=== PATIENT | female | born 1985 | race African-American/Black ===

== ENCOUNTER 2017-03-05 07:54 | Inpatient (IN) | payer OTHER ==
[2017-03-04 15:18] LABS: Hematocrit 38 % (35-47); Hemoglobin 12.3 g/dl (12.0-16.0); Mean Corpuscular HGB Conc 33 g/dl (31-36); Mean Corpuscular Hemoglobin 28 pg (27-31); Mean Corpuscular Volume 86 fL (80-97); Mean Platelet Volume 8 um3 (7.4-10.4); Red Blood Count 4.37 10^6/ul (4.0-5.4); Red Cell Distribution Width 14 % (10.5-15)
[~2017-03-05 07:54] MED LIST: Buffered Lidocaine 0.9% SYRIN* 5 ML/SYR SYRINGE INTRADERM ONE; Famotidine IV* 10 MG/ML 2 ML (20 mg) IV ONE; Sodium Citrate/Citric Acid* 15 ML UDC PO ONE
[2017-03-05] MEDS ORDERED: Lidocaine 1% MPF* 2 ML VIAL ONE (08:38)
[2017-03-05] MEDS ORDERED: Dexamethasone IV* 4 MG/ML 1 ML (4 MG) ONE (09:12)
[2017-03-05] MEDS ORDERED: Ondansetron INJ* 2 MG/ML VIAL ONE (09:12)
[2017-03-05] MEDS ORDERED: Morphine PF AMP (0.5MG/ML)* 5 MG/10 ML AMP ONE (09:12)
[2017-03-05] MEDS ORDERED: OXYTOCIN* 10 UNITS/ML 1 ML VIAL ONE ×2 (09:12→11:08)
[2017-03-05] MEDS ORDERED: ceFOXitin 2 GM IVPREMIX* 2 GM/50 ML BAG IVPB ONE (09:30)
[2017-03-05] MEDS ORDERED: Methylergonovine INJ* 0.2 MG/ML 1ML AMP ONE (11:08)
[2017-03-05] MEDS ORDERED: fentaNYL* 50 MCG/ML 2 ML VIAL (100 MCG VIAL) ONE (11:20)
[2017-03-05] MEDS ORDERED: Lidocaine 2% PF* 10 ML AMP ONE (11:24)
[2017-03-05] MEDS ORDERED: oxyCODONE/Acetamin 5/325 MG* TAB PO PRN (11:34)
[2017-03-05] MEDS ORDERED: fentaNYL* 50 MCG/ML 2 ML VIAL (100 MCG VIAL) IV PRN (11:34)
[2017-03-05] MEDS ORDERED: Naloxone* 0.4 MG/ML 1 ML VIAL IV PRN (11:34)
[2017-03-05] MEDS ORDERED: Nalbuphine* 20 MG/ML 1 ML VIAL IV PRN ×2 (11:34)
[2017-03-05] MEDS ORDERED: Ondansetron INJ* 2 MG/ML VIAL IV PRN (11:34)
[2017-03-05] MEDS ORDERED: Dibucaine 1% 28.35 GM TUBE PR PRN (12:08)
[2017-03-05] MEDS ORDERED: Acetaminophen TAB* 325 MG PO PRN (12:08)
[2017-03-05] MEDS ORDERED: Witch Hazel PAD* JAR TOPICAL PRN (12:08)
[2017-03-05] MEDS ORDERED: Glycerin ADULT SUPP PR PRN (12:08)
[2017-03-05] MEDS ORDERED: Oxytocin in LR* 20 UNITS/1,000 ML BAG IVPB SCH (13:00)
[2017-03-05] MEDS: Ketorolac INJ* 30 MG/ML 1 ML VIAL IV PRN ×2 (16:32→22:38)
[2017-03-05] MEDS: Simethicone CHEW TAB* 80 MG PO SCH (22:37)
[2017-03-05] MEDS: Docusate CAP* 100 MG PO SCH (22:37)
[2017-03-05] MEDS: Ibuprofen TAB* 600 MG PO SCH (23:02)
[2017-03-05] MEDS: oxyCODONE/Acetamin 5/325 MG* TAB PO PRN (23:03)
[2017-03-06] MEDS: oxyCODONE/Acetamin 5/325 MG* TAB PO PRN ×5 (03:03→23:55)
[2017-03-06] MEDS ORDERED: oxyCODONE/Acetamin 5/325 MG* TAB PO PRN (03:34)
[2017-03-06] MEDS: Ibuprofen TAB* 600 MG PO SCH ×5 (05:45→21:26)
[2017-03-06 07:23] LABS: Hematocrit 35 % (35-47); Hemoglobin 11.4 g/dl (12.0-16.0); Mean Corpuscular HGB Conc 33 g/dl (31-36); Mean Corpuscular Hemoglobin 28 pg (27-31); Mean Corpuscular Volume 86 fL (80-97); Mean Platelet Volume 8 um3 (7.4-10.4); Red Blood Count 4.06 10^6/ul (4.0-5.4); Red Cell Distribution Width 14 % (10.5-15); White Blood Count 15.3 10^3/ul (3.5-10.8)
[2017-03-06] MEDS: Simethicone CHEW TAB* 80 MG PO SCH ×6 (07:34→21:25)
[2017-03-06] MEDS: Docusate CAP* 100 MG PO SCH ×4 (07:34→21:25)
[2017-03-06] MEDS ORDERED: Ferrous Gluconate TAB* 324 MG TAB PO SCH (09:00)
--- NOTE | 2017-03-06 14:48 | OP ---
DATE OF OPERATION: 03/05/17 - ROOM #[id number] DATE OF : 85 SURGEON: Margarita Gates MD. IN SHOP SERVICE TECHNICIAN: PAULINE العراقي. SECOND IN SHOP SERVICE TECHNICIAN: Luis Torrez CNM. ANESTHESIOLOGIST: Dr. Ibarra. ANESTHESIA: Spinal anesthesia. MOTOR OVERHAULER: Dr. Camarena. PRE-OP DIAGNOSES: Intrauterine , breech presentation, right sacrum anterior, 39 and 3/7th weeks. POST-OP DIAGNOSES: Intrauterine , breech presentation, right sacrum anterior, 39 and 3/7th weeks, delivered. OPERATIVE PROCEDURE: Primary low transverse section. ESTIMATED BLOOD LOSS: 800 cc. FLUIDS: 2600 cc of crystalloid. URINE OUTPUT: 200 cc of clear yellow urine. FINDINGS: Revealed incomplete breech, right sacrum anterior, nuchal cord x2, right meconium, Apgars were 8 at 1 minute, 3 at 3 minutes, and 8 at 5 minutes. Male infant, weight was 8 pounds and 11 ounces. Normally palpated tubes and ovaries, 4 cm anterior fundal fibroid, 4 cm left broad ligament posterior fibroid, large vascular bed posterior uterine wall with a large vein on the lower uterine segment and the posterior uterine wall requiring x2 figure-of- eight sutures for hemostasis. Urine cavity without retained membranes or placental tissue. Placenta was 3-vessel cord, manually extracted and intact. COMPLICATIONS: None apparent. DISPOSITION: Stable to recovery room. DESCRIPTION OF PROCEDURE: The patient was placed in dorsal lithotomy position. The abdomen was prepped and draped in a sterile standard fashion. The patient was identified with universal protocol for correct procedure, patient, and position. After testing anesthesia to appropriate level, an incision was made two fingerbreadths above the pubic symphysis with a scalpel, this was carried down through to the fascia. The fascia was scored in the midline and the fascial incision was extended laterally and superiorly. Fascia was from the rectus muscle with blunt and sharp dissection. The peritoneum was then entered bluntly and the peritoneal incision was extended superiorly and inferiorly while directly visualizing bowel and bladder using blunt and sharp dissection. The bladder blade was inserted and lower uterine segment incision was identified. A bladder flap was created through blunt and sharp dissection. An Allis was used to tent up on the lower uterine segment and an incision was made with scalpel. This was carried down through to the membranes. The incision was extended laterally and superiorly using bandage scissors, amniotomy occurred with light meconium staining. The infant was found to be in complete breech. The right and left foot were delivered, then the right shoulder and left shoulder delivered. Head delivered. Nuchal cord x2 was noted. The cord was reduced. The cord was milked and the cord was then doubly clamped, cut, and the infant was handed off to waiting derrick worker well service. Appropriate cord blood was obtained. The placenta was manually extracted and noted to be intact with three-vessel cord and a normal appearance. The uterus, given the size of the fibroids, it was decided to leave the uterus in situ for reapproximation of the hysterotomy site, the base of the lower uterine segment and the posterior uterine wall. The endometrium was noted to have a large vein with bleeding. The vein was ligated using 0 Vicryl in a [id number] fashion x2 for complete hemostasis of the large venous vinson. Once hemostasis was assured, the uterine incision itself was then reapproximated using 0 Vicryl x2, first layer running locked, second layer running imbricated. Both tubes and ovaries were palpated. The fibroids were palpated. Please see above for findings. She had three large fibroids and normally palpated tubes and ovaries. After lavage was performed and hemostasis was assured at the hysterotomy site, the peritoneum was then reapproximated using 3-0 Vicryl in a running fashion. The subfascial area was visualized. Hemostasis assured with Bovie coagulation and the fascia itself was reapproximated using 0 Vicryl x2. Subcu was lavaged. Hemostasis was assured with Bovie coagulation. Skin was then reapproximated using 4-0 Monocryl in a subcuticular fashion. Mastisol and Steri's were applied. All sponge, needle, instrument and blade counts were correct throughout the case. The patient tolerated the procedure well. Please note that post delivery, the baby was vigorous at delivery and then at about 3 minutes, experienced a sudden drop in heart rate with respiratory issues and did require resuscitation with chest compression and supplemental O2. The did not require epinephrine and was then transferred to the NICU and placed on CPAP. I was unsure of the etiology of the sudden change in status post-operatively, it was thought it may be related to a mucus plug, but unsure. [id number]/[facility] #: [id number] NADIYA
--- NOTE | 2017-03-06 14:58 | PTEDU ---
Patient Name: SHARAD GUILLEN SHARAD GUILLEN selected video: BBOB: Nurturing Your Gorgeous \T\Growing Baby by to view o n 03/06/2017 at 2:56:40 PM [id number]
[2017-03-06] MEDS ORDERED: diPHENhydraMINE PO* 25 MG PO ONE (22:17)
[2017-03-06] MEDS ORDERED: diPHENhydraMINE PO* 25 MG ONE (22:22)
[2017-03-06] MEDS: Ibuprofen TAB* 600 MG PO PRN (23:56)
[2017-03-07] MEDS: Ibuprofen TAB* 600 MG PO PRN ×3 (07:42→21:11)
[2017-03-07] MEDS: oxyCODONE/Acetamin 5/325 MG* TAB PO PRN ×2 (07:42→22:56)
[2017-03-07] MEDS: Simethicone CHEW TAB* 80 MG PO SCH ×4 (09:50→21:12)
[2017-03-07] MEDS: Docusate CAP* 100 MG PO SCH ×3 (09:50→21:12)
[2017-03-08] MEDS: Ibuprofen TAB* 600 MG PO PRN ×2 (03:00→10:35)
[2017-03-08 08:05] VITALS: BP 136/80
[2017-03-08] MEDS: oxyCODONE/Acetamin 5/325 MG* TAB PO PRN (10:34)
[2017-03-08] MEDS: Simethicone CHEW TAB* 80 MG PO SCH (10:35)
[2017-03-08] MEDS: Docusate CAP* 100 MG PO SCH (10:35)
== END 2017-03-08 13:25 | disposition home or self-care (01) | DRG 540 ==
LOC: MCHOB 07:54
PROVIDERS: ADMIT Obstetrics & Gynecology; ATTEND Obstetrics & Gynecology
PROC: 10D00Z1 Extraction of Products of Conception, Low, Open Approach (ICD-10-PCS; principal; 2017-03-05 09:15)
DX: O32.1XX0 Maternal care for breech presentation, not applicable or unspecified (principal); D25.9 Leiomyoma of uterus, unspecified; O77.0 Labor and delivery complicated by meconium in amniotic fluid; O69.81X0 Labor and delivery complicated by cord around neck, without compression, not applicable or unspecified; O34.13 Maternal care for benign tumor of corpus uteri, third trimester; Z3A.39 39 weeks gestation of pregnancy; Z37.0 Single live birth
CPT/HCPCS: 36415; 85025; 86850; 86900; 86901; A9270-GY; J0694; J1100; J1885; J2001; J2210; J2300; J2405; J2590; J3010

== ENCOUNTER 2018-08-21 09:58 | Inpatient (IN) | payer OTHER ==
[2018-08-21] MEDS ORDERED: OBEPIDURAL* 250 ML EPIDURAL ONE (13:22)
[2018-08-21 13:32] LABS: ABS Basophils 0 10^3/ul (0-0.2); ABS Eosinophils 0 10^3/ul (0-0.6); ABS Lymphocytes 1.4 10^3/ul (1.0-4.8); ABS Monocytes 0.7 10^3/ul (0-0.8); ABS Neutrophils 8.8 10^3/ul (1.5-7.7); ABS Nucleated RBC 0 10^3/ul; Eosinophil % 0.1 %; Hematocrit 41 % (35-47); Hemoglobin 13.7 g/dl (12.0-16.0); Lymphocyte % 12.6 %; Mean Corpuscular HGB Conc 33 g/dl (31-36); Mean Corpuscular Hemoglobin 29 pg (27-31); Mean Corpuscular Volume 87 fL (80-97); Nucleated Red Blood Cells % 0; Platelet Count 176 10^3/ul (150-450); Red Blood Count 4.76 10^6/ul (4.00-5.40); Red Cell Distribution Width 14 % (10.5-15); White Blood Count 10.9 10^3/ul (3.5-10.8)
[2018-08-21] MEDS ORDERED: fentaNYL* 50 MCG/ML 2 ML VIAL (100 MCG VIAL) IV ONE (14:19)
[2018-08-21] MEDS ORDERED: fentaNYL* 50 MCG/ML 2 ML VIAL (100 MCG VIAL) ONE (14:21)
[2018-08-21] MEDS ORDERED: Famotidine TAB* 20 MG PO PRN (15:33)
[2018-08-21] MEDS ORDERED: EPHEDrine (Pressors)* 50 MG/ML VIAL IV PUSH PRN ×2 (15:33)
[2018-08-21] MEDS ORDERED: Phenylephrine IV* 40 MCG/ML 10 ML SYRINGE IV PUSH PRN ×2 (15:33)
[2018-08-21] MEDS ORDERED: Sodium Citrate/Citric Acid* 15 ML UDC PO PRN (15:33)
[2018-08-21] MEDS ORDERED: OBEPIDURAL* 250 ML EPIDURAL SCH (16:00)
[2018-08-21] MEDS ORDERED: Oxytocin in LR* 20 UNITS/1,000 ML BAG IVPB ONE (16:14)
[2018-08-21] MEDS ORDERED: Dibucaine 1% 28.35 GM TUBE PR PRN (16:43)
[2018-08-21] MEDS ORDERED: Glycerin ADULT SUPP PR PRN (16:43)
[2018-08-21] MEDS ORDERED: Acetaminophen TAB* 325 MG PO PRN (16:43)
[2018-08-21] MEDS ORDERED: Witch Hazel PAD* JAR TOPICAL PRN (16:43)
[2018-08-21] MEDS ORDERED: ceFAZolin 2 GM PREMIX in ORs 2 GM/50 ML BAG IVPB ONE (16:45)
[2018-08-21] MEDS ORDERED: Misoprostol TAB* 200 MCG PR ONE (16:45)
--- NOTE | 2018-08-21 16:52 | PROCNOTE ---
[facility] OB: Delivery Note - Delivery A Date of : 08/21/18 Sex: Female [place] Weight at : 7 lb 9 oz Score 1 Minute: 8 Score 5 Minutes: 9 Gestational Age in Weeks and Days at Delivery: 37 Weeks and 5 Days Delivery Method: Spontaneous Vaginal Labor: Spontaneous Did Patient attempt ?: Yes, Successful Amniotic Fluid: Clear Estimated Blood Loss: 500 Anesthesia/Analgesia: CEI for Labor, Nitrous-Labor Delivered By: Margarita Gates - Nursery Level of Nursery: Regular/Bedside - Perineum Perineal Injury: Right Mediolateral, 1st Degree Perineal Repair: By Delivering Practioner - Events Delivery Events of Note: Pitocin Only After Delivery, Post- Bleeding - Meds Given - cytotec 800 mcg MS - Additional Delivery Notes Additional Delivery Notes: placenta inact/#VC/ spontaneous/ nuchal cord X 1/ palpated uterine scar intact to get one dose of Ancef 2 gm IV
[2018-08-21] MEDS ORDERED: Oxytocin in LR* 20 UNITS/1,000 ML BAG IVPB SCH (17:00)
[2018-08-21] MEDS ORDERED: Simethicone TAB* 80 MG TAB.CHEW PO SCH (17:30)
[2018-08-21] MEDS ORDERED: ceFOXitin 2 GM IVPREMIX* 2 GM/50 ML BAG ONE (17:44)
[2018-08-21] MEDS: Ibuprofen TAB* 600 MG PO PRN (20:38)
[2018-08-21] MEDS: Docusate CAP* 100 MG PO SCH (21:25)
[2018-08-22] MEDS: Ibuprofen TAB* 600 MG PO PRN ×3 (04:23→21:08)
[2018-08-22 06:38] LABS: ABS Basophils 0 10^3/ul (0-0.2); ABS Eosinophils 0 10^3/ul (0-0.6); ABS Lymphocytes 1.6 10^3/ul (1.0-4.8); ABS Monocytes 1.3 10^3/ul (0-0.8); ABS Neutrophils 9.4 10^3/ul (1.5-7.7); ABS Nucleated RBC 0 10^3/ul; Eosinophil % 0.1 %; Hematocrit 34 % (35-47); Hemoglobin 11.5 g/dl (12.0-16.0); Lymphocyte % 12.8 %; Mean Corpuscular HGB Conc 33 g/dl (31-36); Mean Corpuscular Hemoglobin 29 pg (27-31); Mean Corpuscular Volume 87 fL (80-97); Mean Platelet Volume 7.3 fL (7.4-10.4); Nucleated Red Blood Cells % 0; Platelet Count 160 10^3/ul (150-450); Red Blood Count 3.95 10^6/ul (4.00-5.40); Red Cell Distribution Width 14 % (10.5-15); White Blood Count 12.3 10^3/ul (3.5-10.8)
[2018-08-22] MEDS ORDERED: Ferrous Gluconate TAB* 324 MG TAB PO SCH (09:00)
[2018-08-22] MEDS: Docusate CAP* 100 MG PO SCH ×3 (10:31→21:08)
[2018-08-23] MEDS: Ibuprofen TAB* 600 MG PO PRN (09:37)
[2018-08-23] MEDS: Docusate CAP* 100 MG PO SCH (09:37)
[2018-08-23 11:14] VITALS: BP 119/67
== END 2018-08-23 17:30 | disposition home or self-care (01) | DRG 807 ==
LOC: MCHOBOUT 09:58 → MCHOB 10:18
PROVIDERS: ADMIT Obstetrics & Gynecology; ATTEND Obstetrics & Gynecology
PROC: 10E0XZZ Delivery of Products of Conception, External Approach (ICD-10-PCS; principal; 2018-08-21)
PROC: 0HQ9XZZ Repair Perineum Skin, External Approach (ICD-10-PCS; 2018-08-21)
DX: O60.23X1 Term delivery with preterm labor, third trimester, fetus 1 (principal); Z37.0 Single live birth; O34.211 Maternal care for low transverse scar from previous cesarean delivery; O70.0 First degree perineal laceration during delivery; Z3A.37 37 weeks gestation of pregnancy
CPT/HCPCS: 36415; 85025; 86850; 86900; 86901; A9270-GY; J0690; J0694; J3010